=== PATIENT | female | born 1955 | race Caucasian/White ===

== ENCOUNTER 2017-04-10 13:05 | Outpatient (CLI) | payer SELFPAY ==
--- NOTE | 2017-04-10 14:17 | DIAGNOSTIC IMAGING REPORT ---
PROCEDURE: US VENOUS - RIGHT EXT INDICATION: RT LEG PAIN,HX DVT TECHNIQUE: Duplex sonography of the deep venous system in the right lower extremity was performed. Compression and augmentation techniques were used. COMPARISON: None. FINDINGS: Each interrogated segment of deep vein from the common femoral vein into the calf veins demonstrates normal compressibility, augmentation and/or color Doppler flow without filling defect. No evidence of significant soft-tissue edema, soft-tissue mass or cyst. IMPRESSION: 1. No deep venous thrombosis in the right lower extremity.
== END 2017-04-10 23:00 | disposition home or self-care (01) ==
LOC: US SRH 13:05
DX: M79.604 Pain in right leg (principal); Z86.718 Personal history of other venous thrombosis and embolism

== ENCOUNTER 2017-05-02 12:22 | Outpatient (CLI) | payer SELFPAY ==
--- NOTE | 2017-05-02 13:34 | DIAGNOSTIC IMAGING REPORT ---
PROCEDURE: MR LOW EXT NONJOINT WO CON-RT INDICATION: RT LEG PAIN,CALF TECHNIQUE: Axial, coronal and sagittal T1 and STIR sequences. COMPARISON: Right leg venous duplex ultrasound 04/10/2017. FINDINGS: Normal symmetric anatomy. Normal muscular structures without evidence of mass, fluid collection, edema or scar. Normal osseous structures. IMPRESSION: 1. Normal MRI of the bilateral calves.
== END 2017-05-02 23:00 ==
LOC: MRI SRH 12:22
DX: M79.604 Pain in right leg (principal)